=== PATIENT | female | born 1930 | race Caucasian/White ===

== ENCOUNTER → 2016-12-23 16:36 | Outpatient (CLI) | payer MEDICARE, OTHER ==
[2016-03-01 06:34] VITALS: BMI 20.1
[~2016-12-23 16:36] MED LIST: FISH OIL 1,0001 CA1 PO; LEVOTHYROXINE50 MCG PO; VITAMIN D3400 UNI1 PO
== END | disposition home or self-care (01) ==
LOC: D.MAMMO 08:30
DX: Z12.31 Encounter for screening mammogram for malignant neoplasm of breast (principal)